=== PATIENT | male | born 1985 | race American Indian/Alaskan Native ===

== ENCOUNTER 2016-10-12 03:38 | Emergency (ER) | payer OTHER ==
[2016-10-12] MEDS ORDERED: DILANTIN 1,000 MG in NACL 0.9% 250ML 250 ML IV ONE (04:26)
[2016-10-12] MEDS ORDERED: NACL 0.9% IV ONE (05:00)
[2016-10-12] MEDS ORDERED: DILANTIN IV ONE (05:00)
[2016-10-12 05:16] LABS: Basophils % (Auto) 0.7 % (0.0-1.8); Eosinophils % (Auto) 1.7 % (0.0-4.3); Hematocrit 39.7 % (35.5-45.6); Hemoglobin 13.6 gm/dl (11.8-15.2); Mean Corpuscular HGB Conc 34 % (32-34); Mean Corpuscular Hemoglobin 29 pg (28-32); Mean Corpuscular Volume 85 fl (84-94); Platelet Count 241 K/mm3 (140-440); Red Blood Count 4.68 M/mm3 (3.65-5.03); Red Cell Distribution Width 15.1 % (13.2-15.2)
--- NOTE | 2016-10-12 05:25 | Cat Scan Report ---
FINAL REPORT EXAM: CT HEAD/BRAIN WO CON HISTORY: seizure TECHNIQUE: CT imaging acquired through the head without intravenous contrast. Transaxial reformations are provided. PRIORS: None. FINDINGS: The ventricles, cisterns and sulci are normal. No intraparenchymal or extra-axial mass, hemorrhage, or mass effect. [place] and white-matter differentiation is normal. Normal spherical shape of the globes. Paranasal sinuses and mastoid air cells are clear. No skull or facial fracture visualized. IMPRESSION: No acute intracranial abnormality. Consider MRI follow-up as warranted.
[2016-10-12 05:34] LABS: Alanine Aminotransferase 16 units/L (7-56); Albumin 3.9 g/dL (3.9-5); Alkaline Phosphatase 73 units/L (35-129); Anion Gap 19 mmol/L; Blood Urea Nitrogen 14 mg/dL (9-20); Calcium 8.8 mg/dL (8.4-10.2); Carbon Dioxide 21 mmol/L (22-30); Chloride 104.1 mmol/L (98-107); Glucose 106 mg/dL (75-100); Potassium 3.6 mmol/L (3.6-5.0); Sodium 140 mmol/L (137-145); Total Protein 7.9 g/dL (6.3-8.2)
--- NOTE | 2016-10-12 07:01 | Emergency Department Report ---
HPI - General Chief Complaint: Seizure Time Seen by Provider: 10/12/16 06:58 - HPI HPI: PT IS HERE AFTER HAVING A SEIZURE WHILE GETTING ARRESTED, PATIENT STATES H/O SEIZURES, NOT COMPLIANT WITH MEDS. SEIZURE LASTED ABOUT 1 MINUTE, NO LOSS OF BOWEL OR URINE. NO FEVER, DENIES NECK PAIN, NO INJURIES. ED Past Medical Hx - Past Medical History Previous Medical History?: Yes Hx Seizures: Yes Additional medical history: Bipolar, Depression - Surgical History Past Surgical History?: No - Social History Smoking Status: Current Every Day Smoker Substance Use Type: None - Medications Home Medications: Home Medications Medication Instructions Recorded Confirmed Last Taken Type Escitalopram Oxalate [Lexapro] 20 mg PO DAILY #30 tablet 10/12/16 Unknown Rx Phenytoin Sodium Extended 30 mg PO Q8H #90 capsule 10/12/16 Unknown Rx [Dilantin] ED Review of Systems ROS: Stated complaint: MEDICAL CLEARANCE Other details as noted in HPI Comment: All other systems reviewed and negative Neurological: other (SEIZURE) Physical Exam - Physical Exam Vital Signs: Vital Signs 10/12/16 10/12/16 10/12/16 04:11 04:20 06:48 Temperature 97.7 F Pulse Rate 107 H 96 H 78 Respiratory 20 16 Rate Blood Pressure 137/91 138/78 112/67 O2 Sat by Pulse 99 98 100 Oximetry Physical Exam: vitals reviewed - General Limitations: No Limitations General appearance: alert, in no apparent distress - Head Head exam: Present: atraumatic, normocephalic - Eye Eye exam: Present: normal appearance - ENT ENT exam: Present: mucous membranes moist - Neck Neck exam: Present: normal inspection - Respiratory Respiratory exam: Present: normal lung sounds bilaterally. Absent: respiratory distress - Cardiovascular Cardiovascular Exam: Present: regular rate, normal rhythm. Absent: systolic murmur, diastolic murmur, rubs, gallop - GI/Abdominal GI/Abdominal exam: Present: soft, normal bowel sounds - Extremities Exam Extremities exam: Present: normal inspection - Back Exam Back exam: Present: normal inspection - Neurological Exam Neurological exam: Present: alert, oriented X3, CN II-XII intact - Psychiatric Psychiatric exam: Present: flat affect, - Skin Skin exam: Present: warm, dry, intact, normal color. Absent: rash ED Course Vital Signs 10/12/16 10/12/16 10/12/16 04:11 04:20 06:48 Temperature 97.7 F Pulse Rate 107 H 96 H 78 Respiratory 20 16 Rate Blood Pressure 137/91 138/78 112/67 O2 Sat by Pulse 99 98 100 Oximetry ED Medical Decision Making - Lab Data Result diagrams: 10/12/16 Unknown 10/12/16 Unknown Critical care attestation.: If time is entered above; I have spent that time in minutes in the direct care of this critically ill patient, excluding procedure time. ED Disposition Clinical Impression: Seizure Disposition: [id number] TO HOME OR SELFCARE Is pt being admited?: No Does the pt Need Aspirin: No Condition: Stable Prescriptions: Escitalopram Oxalate [Lexapro] 20 mg PO DAILY #30 tablet Phenytoin Sodium Extended [Dilantin] 30 mg PO Q8H #90 capsule Referrals: PRIMARY CARE, [Primary Care Provider] - 3-5 Days
[2016-10-12 07:23] VITALS: BP 123/82
== END 2016-10-12 07:30 | disposition home or self-care (01) ==
LOC: ED 03:38
DX: R56.9 Unspecified convulsions (principal); F31.9 Bipolar disorder, unspecified; F17.200 Nicotine dependence, unspecified, uncomplicated
CPT/HCPCS: 36415; 70450; 80053; 80185; 83735; 85025; 96374; 99285; J1165; J7050